=== PATIENT | female | born 1975 | race Caucasian/White ===

== ENCOUNTER 2023-03-06 07:05 | Outpatient (RCR) | payer OTHER, SELFPAY | END 2023-03-17 23:59 | disposition home or self-care (01) | LOC: RPT 07:05 | PROVIDERS: ATTENDING PHYSICIAN Surgery | DX: I89.0 Lymphedema, not elsewhere classified (principal); D05.92 Unspecified type of carcinoma in situ of left breast; Z73.6 Limitation of activities due to disability | CPT/HCPCS: 97110; 97140 ==

== ENCOUNTER → 2023-07-07 08:02 | Outpatient (REF) | payer OTHER, SELFPAY | LOC: WDC 08:02 | PROVIDERS: ATTENDING PHYSICIAN Surgery | DX: Z12.31 Encounter for screening mammogram for malignant neoplasm of breast (principal) | CPT/HCPCS: 77063; 77067 ==

== ENCOUNTER → 2023-07-23 07:33 | Outpatient (REF) | payer OTHER, SELFPAY | LOC: RCS 07:33 | PROVIDERS: ATTENDING PHYSICIAN Internal Medicine Cardiovascular Disease | DX: Z85.3 Personal history of malignant neoplasm of breast (principal); I35.1 Nonrheumatic aortic (valve) insufficiency; I34.1 Nonrheumatic mitral (valve) prolapse | CPT/HCPCS: 93306; 93356 ==

== ENCOUNTER → 2023-12-30 14:31 | Outpatient (REF) | payer OTHER, SELFPAY | LOC: WDC 14:31 | PROVIDERS: ATTENDING PHYSICIAN Surgery | DX: N63.20 Unspecified lump in the left breast, unspecified quadrant (principal); C50.412 Malignant neoplasm of upper-outer quadrant of left female breast | CPT/HCPCS: 76642 ==

== ENCOUNTER → 2024-01-26 11:01 | Outpatient (REF) | payer OTHER, SELFPAY | LOC: WDC 11:01 | PROVIDERS: ATTENDING PHYSICIAN Family Medicine Geriatric Medicine | DX: R92.30 Dense breasts, unspecified (principal) | CPT/HCPCS: 76641 ==

== ENCOUNTER → 2024-05-30 08:27 | Outpatient (REF) | payer OTHER, SELFPAY | LOC: RAD 08:27 | PROVIDERS: ATTENDING PHYSICIAN Nurse Practitioner Adult Health | DX: C50.412 Malignant neoplasm of upper-outer quadrant of left female breast (principal); D50.9 Iron deficiency anemia, unspecified; K62.89 Other specified diseases of anus and rectum | CPT/HCPCS: 73502; 73564 ==

== ENCOUNTER → 2024-07-12 17:02 | Outpatient (REF) | payer OTHER, SELFPAY | LOC: WDC 17:02 | PROVIDERS: ATTENDING PHYSICIAN Surgery | DX: Z85.3 Personal history of malignant neoplasm of breast (principal); C50.412 Malignant neoplasm of upper-outer quadrant of left female breast; Z17.0 Estrogen receptor positive status [ER+]; Z12.31 Encounter for screening mammogram for malignant neoplasm of breast | CPT/HCPCS: 77063; 77067 ==

== ENCOUNTER 2024-08-09 16:48 | Emergency (ER) | payer OTHER, SELFPAY ==
[2024-08-09 16:50] VITALS: BP 118/80
[2024-08-09 17:35] VITALS: BMI 26.3
--- NOTE | 2024-08-09 20:37 | ED.GENMED ---
History of Present Illness
General
Chief Complaint: Throat Problem
Time Seen by Provider: 08/09/24 20:37
History of Present Illness
History of Present Illness:
TIME OF INITIAL ENCOUNTER:
HPI: The patient presents with multiple concerns. She has been having throat pain over the last couple of weeks. She noted that her uvula was 'elongated'. Although she did not have testing, the doctor placed her on a Z-Marko. She thought she was
feeling little bit better but then symptoms persisted and worsened. She then was placed on amoxicillin and she is on day 7 of 10 without any significant improvement. She also reports some night sweats. She had some pain in the head and neck as
well.
EXAM:
GENERAL: Well appearing in no distress
HEENT: Moist oral mucosa, excellent chin to chest, no meningeal signs, there is some scattered patchy areas of erythema and questionable petechiae, there is no
CARDIOVASCULAR: No murmurs, normal heart rate, regular rhythm, No chest wall tenderness
PULMONARY: No respiratory distress, breath sounds are clear and equal
ABDOMEN: Soft with no peritoneal signs, no tenderness
NEUROLOGIC: Excellent strength all extremities, no coordination deficits
PSYCHIATRIC: Appropriate mental status, normal insight and judgement, appears anxious
EXTREMITIES: Nontender, no edema, moves all extremities equally
SKIN: No rash, no lesions
NUMBER AND COMPLEXITY OF PROBLEMS ADDRESSED AT THE ENCOUNTER
� Chronic conditions affecting care: Breast cancer
� Acute Exacerbation and/or Progression of Chronic Illness: This is an acute problem
� Differential Diagnosis includes: Pharyngitis, viral syndrome, mono, strep, lymphoma
AMOUNT AND/OR COMPLEXITY OF DATA TO BE REVIEWED AND ANALYZED
� I performed an independent evaluation of and my interpretation is:
EKG:
CT: CT imaging shows no acute abnormality including no sign of malignancy
X-rays:
Laboratory Studies: White count is 4.0, lymphocytes in normal range (was abnormal as outpatient according to the patient), mono negative
Other:
� Review of other/old records: I reviewed records, the patient had echo 1 year ago
� Clinical information was obtained by an independent historian: I spoke to at bedside
� Prescriptions/Medications Considered but not given:
� Further testing considered but not performed:
RISK OF COMPLICATIONS AND/OR MORBIDITY OR MORTALITY OF PATIENT MANAGEMENT
� Social determinants of health affecting care: Lives at home
� Discussion with other providers:
� Escalation of care including admission/observation vs risk of discharge considered: Given patient's concerns to the point that she nearly broke down in tears with her concern about her symptoms, CT imaging obtained. Of note,
the patient did report night sweats as well. Very low suspicion for lymphoma but CT imaging was performed.
ANY OTHER UPDATES:
11:15 PM: I reassessed patient. She is relieved to hear that there is no sign of malignancy related concern. Will give short course of steroids.
Phy Exam
Physical Exam
Physical Exam:
See HPI
Course
Orders/Labs/Results
Orders:
Orders
08/09/24 20:50
CT Neck With Iv Contrast Urgent
Comment:
Reason For Exam: anterior neck pain night sweats
0.9% Sodium Chloride 1000 ml [Nss] 1,000 ml IV BOLUS
Dexamethasone Sod Phosphate [Decadron] 10 mg IV NOW STA
Ketorolac [Toradol] 15 mg IV NOW STA
08/09/24 21:32
Complete Blood Count/With Diff Urgent
Comprehensive Metabolic Panel Urgent
Monotest Urgent
TSH Reflex To Free T4 Urgent
Throat Culture [Throat Culture, Comprehensive] Urgent
MARTHA Source: Throat/Pharynx
Specimen Description:
Date Specimen was Collected: 08/09/24
Time Specimen was Collected: 21:29
Abnormal Lab Results
08/09/24
21:32
WBC 4.0 L 10^3/uL
(4.8-10.8)
RBC 3.97 L 10^6/uL
(4.20-5.40)
Hct 36.5 L %
(37.0-47.0)
MPV 10.5 H fL
(7.4-10.4)
Monocytes % 9.7 H %
(1.7-9.3)
Glucose 108 H mg/dl
(70-99)
08/09/24 21:32
08/09/24 21:32
Vital Signs
Initial and Last Documented VS:
Initial Vital Signs
Temp Pulse Resp BP Pulse Ox
36.9 C 65 16 118/80 95
08/09/24 16:50 08/09/24 16:50 08/09/24 16:50 08/09/24 16:50 08/09/24 16:50
Last Documented Vital Signs
Temp Pulse Resp BP Pulse Ox
36.9 C 65 16 118/80 96
08/09/24 16:50 08/09/24 16:50 08/09/24 16:50 08/09/24 16:50 08/09/24 17:35
*Critical Care Note
Total Time (30-74mins, 75-104mins- exclusive of procedures): Not Applicable
ED Attending Note
-
Portions of this chart may have been created with voice recognition software.� Occasional wrong word or��sound alike� substitutions may have occurred due to the inherent limitations of voice recognition software.
Discharge Plan
Departure
Patient Disposition: Home (Routine Discharge)
Date of Disposition: 08/09/24
Time of Disposition: 23:12
Patient with high blood pressure during this ER visit?: No
Discharge Problem:
Pharyngitis
Instructions: Sore Throat - Adult
Prescriptions:
New
prednisone 50 mg tablet
50 mg PO DAILY Qty: 4 0RF
Referrals:
Jan Erazo MD [Family Provider] -
Activity Restrictions/Additional Instructions:
I have sent a prescription for steroids to your pharmacy. Return here if worse or other concerns.
Interventions
Interventions:
*Risk Screen - Suicide Last Done: 08/09/24 16:50
*General Assessment Last Done: 08/09/24 16:50
*Neglect/Abuse Screening Last Done: 08/09/24 16:50
*ED COVID-19 Vaccine History Last Done: 08/09/24 17:35
ED-EENT Assessment Last Done: 08/09/24 17:35
BR-Ptzrct-Epupbkweam Assessment Last Done: 08/09/24 17:35
ED- Pulmonary Assessment Last Done: 08/09/24 17:35
ED- Neurological Assessment Last Done: 08/09/24 17:35
Discharge Date and Time
Print Language: NEPALI
[2024-08-09] MEDS: NSS 1000 IV (21:47)
[2024-08-09] MEDS: TORADOL 15 MG IV (21:49)
[2024-08-09] MEDS: DECADRON 10 MG IV (21:49)
[2024-08-09 21:53] LABS: % Basophils 1.2 % (0-2); % Eosinophils 3.5 % (0-6); % Lymphocytes 40.3 % (20.5-51.1); % Monocytes 9.7 % (1.7-9.3); % Neutrophils 45.3 % (42.2-75.2); Absolute Basophils 0.1 10^3/uL (0-0.2); Absolute Eosinophils 0.1 10^3/uL (0-0.7); Absolute Lymphocytes 1.6 10^3/uL (1.2-3.4); Absolute Monocytes 0.4 10^3/uL (0.1-0.6); Absolute Neutrophils 1.8 10^3/uL (1.4-6.5); Hematocrit 36.5 % (37.0-47.0); Hemoglobin 12.2 g/dL (12.0-16.0); Mean Corp Hgb Conc. 33.4 g/dL (33.0-37.0); Mean Corpuscular Hgb 30.7 pg (27.0-31.0); Mean Corpuscular Volume 91.9 fL (81.0-99.0); Mean Platelet Volume 10.5 fL (7.4-10.4); Nucleated Red Blood Cells % 0 %; Platelet Count 192 10^3/uL (130-400); Red Blood Cell Count 3.97 10^6/uL (4.20-5.40); Red Cell Dist. Width 12.7 % (11.5-14.5)
[2024-08-09 22:03] LABS: Monotest Negative (Negative)
[2024-08-09 22:11] LABS: ALT (SGPT) 14 U/L (0-35); AST (SGOT) 22 U/L (14-36); Albumin 4.7 g/dl (3.5-5.0); Alkaline Phosphatase 70 U/L (38-126); Blood Urea Nitrogen 17 mg/dl (7-17); Calcium 9.2 mg/dl (8.4-10.2); Carbon Dioxide 27 mmol/L (22-30); Chloride 106 mmol/L (98-107); Estimated Creatinine Clearance 106 ml/min; Glucose 108 mg/dl (70-99); Potassium 3.6 mmol/L (3.5-5.1); Sodium 142 mmol/L (135-145); Total Bilirubin 0.4 mg/dl (0.2-1.3); Total Protein 7.2 g/dl (6.3-8.2); eGFR > 60.00
[2024-08-09 22:39] LABS: TSH Reflex To Free T4 2.77 uIU/ml (0.47-4.68)
== END 2024-08-09 23:23 | disposition home or self-care (01) ==
LOC: EMR 16:48
PROVIDERS: EMERGENCY PHYSICIAN Emergency Medicine; FAMILY PHYSICIAN Family Medicine
DX: J02.9 Acute pharyngitis, unspecified (principal); Z85.3 Personal history of malignant neoplasm of breast
CPT/HCPCS: 99284; 96374; 96375; 96361; 70491; 80053; 84443; 85025; 86308; 87070; Q9967

== ENCOUNTER → 2024-12-29 10:03 | Outpatient (REF) | payer OTHER, SELFPAY | LOC: WDC 10:03 | PROVIDERS: ATTENDING PHYSICIAN Family Medicine Geriatric Medicine; FAMILY PHYSICIAN Physician Assistant Medical | DX: R59.9 Enlarged lymph nodes, unspecified (principal); M79.89 Other specified soft tissue disorders | CPT/HCPCS: 76642; 77061; 77065 ==

== ENCOUNTER → 2025-02-28 08:59 | Outpatient (REF) | payer OTHER, SELFPAY | LOC: RAD 08:59 | PROVIDERS: ATTENDING PHYSICIAN Internal Medicine Hematology & Oncology; FAMILY PHYSICIAN Physician Assistant Medical | DX: C50.412 Malignant neoplasm of upper-outer quadrant of left female breast (principal); D50.9 Iron deficiency anemia, unspecified; K62.89 Other specified diseases of anus and rectum | CPT/HCPCS: 71260; 74177; 78306; A9503; Q9967 ==